=== PATIENT | male | born 1970 | race Caucasian/White ===

== ENCOUNTER 2024-05-24 17:20 | Inpatient (IN) | payer OTHER ==
[2024-05-24 18:12] VITALS: BMI 24.3
[2024-05-24] MEDS ORDERED: DICYCLOMINE HCL 10 MG CAPSULE PO PRN (18:44)
[2024-05-24] MEDS ORDERED: POLYETHYLENE GLYCOL (HEALTHYLAX) 3350 17 GM PACKET PO PRN (18:44)
[2024-05-24] MEDS ORDERED: ONDANSETRON *ODT* 4 MG TABLET SL PRN (18:44)
[2024-05-24] MEDS ORDERED: LOPERAMIDE HCL 2 MG CAPSULE PO PRN (18:44)
[2024-05-24] MEDS ORDERED: NALOXONE (NARCAN) HCL 4 MG/0.1 ML SPRAY NS PRN (18:44)
[2024-05-24] MEDS ORDERED: guaiFENesin 600 MG TABLET.ER (FP) PO PRN (18:44)
[2024-05-24] MEDS ORDERED: MAG HYDROX/AL HYDROX/SIMETH 30 ML UNIT-DOSE CUP PO PRN (18:44)
[2024-05-24] MEDS ORDERED: MAGNESIUM HYDROX 2400MG/30ML ORAL SUSPENSION 30 ML CUP PO PRN (18:44)
[2024-05-24] MEDS ORDERED: IBUPROFEN 400 MG TABLET (FP) PO PRN (18:44)
[2024-05-24] MEDS ORDERED: BENZONATATE 200 MG CAPSULE PO PRN (18:44)
[2024-05-24] MEDS ORDERED: ACETAMINOPHEN 325 MG TABLET (FP) PO PRN (18:44)
[2024-05-24] MEDS ORDERED: hydrOXYzine PAMOATE 25 MG CAPSULE (FP) PO PRN (18:44)
[2024-05-24] MEDS ORDERED: BENZOCAINE/MENTHOL (CHLORASEPTIC ) LOZENGE MM PRN (18:44)
[2024-05-24] MEDS ORDERED: BISMUTH SUBSALICYLATE 524 MG/30 ML PO PRN (18:44)
[2024-05-24] MEDS ORDERED: cloNIDine HCL 0.1 MG TABLET ONE (22:59)
[2024-05-24] MEDS ORDERED: MELATONIN 5 MG TABLETS ONE (22:59)
[2024-05-24] MEDS: MELATONIN 5 MG TABLETS PO SCH (23:01)
[2024-05-24] MEDS: cloNIDine HCL 0.1 MG TABLET PO PRN (23:01)
[2024-05-24] MEDS: THIAMINE 100 MG TABLET PO SCH (23:01)
[2024-05-25] MEDS: METHOCARBAMOL 500 MG TABLET PO PRN (05:40)
[2024-05-25] MEDS: methaDONE HCL 10 MG TABLET PO ONE (09:04)
[2024-05-25] MEDS: PRENATAL VITAMINS W/ FOLIC ACID TABLET (FP) PO SCH (09:05)
[2024-05-25] MEDS: cloNIDine HCL 0.1 MG TABLET PO SCH (09:05)
[2024-05-25] MEDS: amLODIPine BESYLATE 5 MG TABLET (FP) PO SCH (09:40)
[2024-05-25] MEDS ORDERED: methaDONE HCL 10 MG TABLET PO PRN (10:44)
[2024-05-25 11:35] LABS: CHLORIDE 100 mmol/L (98-107); POTASSIUM 3.9 mmol/L (3.5-5.1); SODIUM 135 mmol/L (136-145)
[2024-05-25 11:36] LABS: HEMATOCRIT 44.9 % (35.4-49); HEMOGLOBIN 14.6 GM/dL (11.7-16.9); MCH 26.1 pg (25.7-33.7); MCHC 32.5 g/dl (32.0-35.9); MEAN CELL VOLUME 80.2 fl (80-96); MEAN PLT VOLUME 10.4 fl (7.5-11.1); PLATELET COUNT 208 10^3/uL (134-434); RDW 15.7 % (11.9-15.9); WHITE BLOOD COUNT 5.8 K/mm3 (4.0-10.0)
[2024-05-25 11:37] LABS: ALBUMIN 3.1 g/dl (3.4-5.0); ANION GAP 7 mmol/L (4-13); BLOOD UREA NITROGEN 16.4 mg/dL (7-18); CALCIUM 8.6 mg/dL (8.5-10.1); CO2 29 mmol/L (21-32)
[2024-05-25 11:38] LABS: GLUCOSE,RANDOM 114 mg/dL (74-106)
[2024-05-25 11:40] LABS: SGPT/ALT 38 U/L (13-61)
[2024-05-25 11:41] LABS: CREATININE 0.9 mg/dL (0.55-1.3); SGOT/AST 23 U/L (15-37)
[2024-05-25 11:42] LABS: BILIRUBIN,TOTAL 0.6 mg/dL (0.2-1); TOT PROT 6.9 g/dl (6.4-8.2)
[2024-05-25 11:43] LABS: ALK PHOS 122 U/L (45-117)
[2024-05-25] MEDS: QUEtiapine FUMARATE 50 MG TABLET PO PRN (21:54)
[2024-05-26] MEDS: methaDONE 40 MG, methaDONE 10 MG PO ONE (09:37)
[2024-05-26] MEDS: IBUPROFEN 600 MG TABLET (FP) PO PRN (17:16)
[2024-05-27] MEDS: cloNIDine HCL 0.1 MG TABLET PO PRN (06:46)
[2024-05-27] MEDS: methaDONE 40 MG, methaDONE 20 MG PO ONE (09:22)
[2024-05-28] MEDS: methaDONE 40 MG, methaDONE 30 MG PO ONE (09:50)
[2024-05-29] MEDS: methaDONE HCL 40 MG DISPERSABLE TABLET PO ONE (10:20)
[2024-05-30] MEDS: methaDONE 80 MG, methaDONE 10 MG PO ONE (09:29)
[2024-05-31 08:50] VITALS: BP 110/80; PULSE 95; RESP 148; TEMP 98.3
== END 2024-05-31 09:02 | disposition home or self-care (01) | DRG 773 ==
LOC: YASAS 17:20 → Y3N 22:49
PROVIDERS: ADMIT Allergy & Immunology; ATTEND Allergy & Immunology
PROC: HZ2ZZZZ Detoxification Services for Substance Abuse Treatment (ICD-10-PCS; principal; 2024-05-24)
DX: F11.23 Opioid dependence with withdrawal (principal); F14.20 Cocaine dependence, uncomplicated; F17.210 Nicotine dependence, cigarettes, uncomplicated; F19.282 Other psychoactive substance dependence with psychoactive substance-induced sleep disorder; I10 Essential (primary) hypertension; R76.8 Other specified abnormal immunological findings in serum; Z88.8 Allergy status to other drugs, medicaments and biological substances
CPT/HCPCS: 36415; 80053; 80305; 80307; 85027; 86593; 86780; 93005; 93010